=== PATIENT | female | born 1980 | race Caucasian/White ===

== ENCOUNTER 2022-10-25 11:15 | Outpatient (RCR) | payer OTHER | END 2022-10-26 | disposition home or self-care (01) | LOC: WSPT | DX: Q76.49 Other congenital malformations of spine, not associated with scoliosis (principal) ==

== ENCOUNTER 2022-10-27 10:04 | Outpatient (RCR) | payer OTHER | END 2022-11-25 | disposition still patient (30) | LOC: WSPT | DX: Q76.49 Other congenital malformations of spine, not associated with scoliosis (principal) ==

== ENCOUNTER 2023-08-24 09:00 | Outpatient (RCR) | payer OTHER | END 2023-08-26 | disposition home or self-care (01) | LOC: WSPT | DX: M25.552 Pain in left hip (principal); M25.551 Pain in right hip ==

== ENCOUNTER 2023-09-17 11:15 | Outpatient (RCR) | payer OTHER | END 2023-09-26 | disposition home or self-care (01) | LOC: WSPT | DX: M25.551 Pain in right hip (principal); M25.552 Pain in left hip ==

== ENCOUNTER → 2023-11-28 | Outpatient (CLI) | payer OTHER | LOC: MC.RAD 07:54 | DX: Z12.31 Encounter for screening mammogram for malignant neoplasm of breast (principal) ==

== ENCOUNTER → 2023-12-12 | Outpatient (CLI) | payer OTHER | LOC: MHCPAIN 12:09 | DX: M47.816 Spondylosis without myelopathy or radiculopathy, lumbar region (principal); M71.38 Other bursal cyst, other site; M54.17 Radiculopathy, lumbosacral region; G89.29 Other chronic pain | CPT/HCPCS: G0463 ==